=== PATIENT | female | born 1960 | race Caucasian/White ===

== ENCOUNTER 2023-10-04 14:43 | Emergency (ER) | payer MEDICARE, OTHER ==
[~2023-10-04] VITALS: Ht 165.1 cm; Wt 63.5 kg
[2023-10-04 14:55] VITALS: BP 148/100; TEMP 98; O2SAT 95
[2023-10-04] MEDS ORDERED: ACETAMINOPHEN ES 500 MG TABLET ONE (15:17)
[2023-10-04] MEDS: ACETAMINOPHEN ES 500 MG TABLET PO ONE (15:20)
== END 2023-10-04 20:00 ==
LOC: ER 14:48
DX: S00.81XA Abrasion of other part of head, initial encounter (principal); S09.90XA Unspecified injury of head, initial encounter; F03.90 Unspecified dementia, unspecified severity, without behavioral disturbance, psychotic disturbance, mood disturbance, and anxiety; I10 Essential (primary) hypertension; W01.0XXA Fall on same level from slipping, tripping and stumbling without subsequent striking against object, initial encounter; Y93.89 Activity, other specified; Y92.89 Other specified places as the place of occurrence of the external cause; Y99.8 Other external cause status
CPT/HCPCS: 70450-TC; 72125-TC

== ENCOUNTER 2024-01-04 17:47 | Inpatient (IN) | payer MEDICARE, OTHER ==
[~2024-01-04] VITALS: Ht 165.1 cm; Wt 54.0 kg
[2024-01-04 10:45] VITALS: BP 129/70; TEMP 98.8; O2SAT 96
[~2024-01-04 17:47] MED LIST: HYDR59LO13 TP; LORA-258 PO; TEMA7.5C PO
[2024-01-04 18:38] LABS: BASOPHILS % (AUTO) 0.3 % (0.0-2.0); HEMATOCRIT 48 % (33-45); LYMPHOCYTES % (AUTO) 8.7 % (20.0-44.0); MEAN CORPUSCULAR HEMOGLOBIN 32 PG (26.0-33.0); MEAN CORPUSCULAR HGB CONC 33 g/dl (31.0-36.0); MEAN CORPUSCULAR VOLUME 95 fL (82-100); MONOCYTES # (AUTO) 1.2 K/uL (0.1-1.30); PLATELET COUNT (AUTO) 293 K/uL (150-450); RED BLOOD CELL COUNT(AUTO) 5.04 MIL/uL (4.0-5.2); RED CELL DISTRIBUTION WIDTH 14.2 % (11.5-15.0); WHITE BLOOD COUNT (AUTO) 11.2 K/uL (4.3-11.0)
[2024-01-04 18:52] LABS: CALCIUM, SERUM 10.5 mg/dL (8.5-10.1); CARBON DIOXIDE 31 mmol/L (21-32); CHLORIDE 106 mmol/L (98-107); CREATININE 0.7 mg/dL (0.6-1.3); GLUCOSE 133 mg/dL (74-106); POTASSIUM 4.8 mmol/L (3.5-5.1); SODIUM SERUM 148 mmol/L (136-145); UREA NITROGEN, BLOOD 29 mg/dL (7-18)
[2024-01-04] MEDS: IV NS 0.9% 1,000 ML BAG IV ONE (18:58)
[2024-01-04 18:59] LABS: ALANINE AMINOTRANSFERASE 20 U/L (12-78); ALBUMIN 2.9 g/dL (3.4-5.0); ALKALINE PHOSPHATASE 94 U/L (46-116); ASPARTATE AMINOTRANSFERASE 17 U/L (15-37); BILIRUBIN,DIRECT 0.2 mg/dL (0.0-0.2); BILIRUBIN,TOTAL 0.6 mg/dL (0.2-1.0); LIPASE 36 U/L (16-77); TOTAL PROTEIN, SERUM 8.2 g/dL (6.4-8.2)
[2024-01-04] MEDS ORDERED: MULT-225 PO (19:28)
[2024-01-04] MEDS ORDERED: CRAN425C6 PO (19:28)
[2024-01-04] MEDS ORDERED: LEVO25TA9 PO (19:28)
[2024-01-04] MEDS ORDERED: RISP0.5T65 PO (19:28)
[2024-01-04] MEDS ORDERED: LACT-58 PO (19:28)
[2024-01-04] MEDS ORDERED: NA P133E RC (19:28)
[2024-01-04] MEDS ORDERED: BISA10SU11 RC (19:28)
[2024-01-04] MEDS ORDERED: DIVA125C2 PO (19:28)
[2024-01-04] MEDS ORDERED: MAGN400O6 PO (19:28)
[2024-01-04] MEDS ORDERED: FAMO20TA8 PO (19:28)
[2024-01-04] MEDS ORDERED: ATOR10TA PO (19:28)
[2024-01-04] MEDS ORDERED: DOCU100C36 PO (19:28)
[2024-01-04] MEDS ORDERED: GABA300C PO (19:28)
[2024-01-04] MEDS ORDERED: CHOL200059 PO (19:28)
[2024-01-04] MEDS ORDERED: RISP1TAB97 PO (19:28)
[2024-01-04] MEDS ORDERED: ACET325T53 PO (19:28)
[2024-01-04 20:02] LABS: APPEARANCE,URINE SLIGHTLY CLOUDY (CLEAR); BILIRUBIN,URINE NEGATIVE (NEGATIVE); BLOOD, URINE 3+ Ery/uL (NEGATIVE); COLOR,URINE YELLOW (YELLOW); KETONES,URINE 1+ mg/dL (NEGATIVE); LEUKOCYTE ESTERASE ,URINE 2+ (NEGATIVE); NITRITE, URINE POSITIVE (NEGATIVE); PH,URINE 7.5 (5.0-8.0); PROTEIN,URINE 1+ mg/dl (NEGATIVE); UGLUCOSE NEGATIVE (NEGATIVE)
[2024-01-04 20:24] LABS: RBC,URINE 21-50 /HPF (0-2)
[2024-01-04 20:25] LABS: ADD URINE CULTURE YES; BACTERIA,URINE Moderate /HPF (None Seen); CALCIUM OXALATE CRYSTALS,UR Few /HPF (None Seen); SQUAMOUS EPITHELIAL CELL,UR Moderate /HPF (None Seen)
[2024-01-04 20:30] VITALS: BP 129/70; TEMP 98.8; O2SAT 96
[2024-01-04] MEDS ORDERED: ZOLPIDEM TARTRATE 5 MG TABLET PO PRN (22:00)
[2024-01-04] MEDS ORDERED: ONDANSETRON HCL/PF 4 MG/2 ML VIAL IVP PRN (22:00)
[2024-01-04] MEDS ORDERED: MAGNESIUM HYDROXIDE 30 ML UDC PO PRN (22:00)
[2024-01-04] MEDS ORDERED: ACETAMINOPHEN 325 MG TABLET PO PRN (22:00)
[2024-01-04] MEDS ORDERED: MAG HYDROX/AL HYDROX/SIMETH 30 ML UDC PO PRN (22:00)
[2024-01-04] MEDS: ENOXAPARIN SODIUM 40 MG/0.4 ML DISP.SYRIN SQ SCH (22:44)
[2024-01-04] MEDS: IV 1/2NS 1000 ML 1,000 ML IV PRN (22:46)
[2024-01-04] MEDS ORDERED: CIPROFLOXACIN IV RTU 200 ML IV ONE (22:56)
[2024-01-04] MEDS: CIPROFLOXACIN IV RTU 400 MG in PREMIX 1 EA IV SCH (23:02)
[2024-01-05] MEDS ORDERED: MAGNESIUM HYDROXIDE 30 ML UDC PO PRN (00:30)
[2024-01-05] MEDS ORDERED: BISACODYL SUPP (10 MG) 10 MG/SUPP.RECT SUPP.RECT RC PRN (00:30)
[2024-01-05] MEDS ORDERED: NA PHOS,M-B/NA PHOS,DI-BA 1 EA ENEMA RC PRN (00:30)
[2024-01-05] MEDS ORDERED: TEMAZEPAM 7.5 MG CAPSULE PO PRN (00:30)
[2024-01-05] MEDS ORDERED: ACETAMINOPHEN 325 MG TABLET PO PRN (00:30)
[2024-01-05 06:44] LABS: BASOPHILS % (AUTO) 0.2 % (0.0-2.0); EOSINOPHILS % (AUTO) 0.3 % (0.0-6.0); HEMATOCRIT 43 % (33-45); HEMOGLOBIN 14.5 g/dL (11.5-14.8); LYMPHOCYTES # (AUTO) 0.9 K/uL (0.8-4.8); LYMPHOCYTES % (AUTO) 9.2 % (20.0-44.0); MEAN CORPUSCULAR HEMOGLOBIN 33 PG (26.0-33.0); MEAN CORPUSCULAR HGB CONC 34 g/dl (31.0-36.0); MEAN CORPUSCULAR VOLUME 96 fL (82-100); MONOCYTES # (AUTO) 1.4 K/uL (0.1-1.30); MONOCYTES % (AUTO) 13.8 % (2.0-12.0); NEUTROPHILS # (AUTO) 7.8 K/uL (1.8-8.9); NEUTROPHILS % (AUTO) 76.5 % (43.0-81.0); PLATELET COUNT (AUTO) 270 K/uL (150-450); RED BLOOD CELL COUNT(AUTO) 4.46 MIL/uL (4.0-5.2); RED CELL DISTRIBUTION WIDTH 14.1 % (11.5-15.0); WHITE BLOOD COUNT (AUTO) 10.1 K/uL (4.3-11.0)
[2024-01-05 07:24] LABS: CALCIUM, SERUM 9.1 mg/dL (8.5-10.1); CREATININE 0.3 mg/dL (0.6-1.3); MAGNESIUM 2.2 mg/dL (1.8-2.4); PHOSPHORUS 2.7 mg/dL (2.5-4.9); POTASSIUM 3.4 mmol/L (3.5-5.1)
[2024-01-05 07:30] VITALS: BP 136/77; TEMP 99.3; O2SAT 96
[2024-01-05 07:38] LABS: THYROID STIMULATING HORMONE 0.59 uIU/mL (0.358-3.74)
[2024-01-05 08:00] VITALS: BP_SYST 136; BP_SYST 150; BP_DIAS 77; BP_DIAS 92; TEMP 98.1; TEMP 99.3; O2SAT 96
[2024-01-05] MEDS ORDERED: Medication Not On Formulary EA (Cranberry Extract (Cranberry) 425 MG) PO SCH (09:00)
[2024-01-05] MEDS: MULTIVIT W/MINERALS 1 TAB TABLET PO SCH (09:40)
[2024-01-05] MEDS: GABAPENTIN 300 MG CAPSULE PO SCH (09:40)
[2024-01-05] MEDS: DIVALPROEX SODIUM 125 MG CAP.SPRINK PO SCH (09:40)
[2024-01-05] MEDS: CHOLECALCIFEROL 1,000 UNIT TABLET (VIT D3) PO SCH (09:40)
[2024-01-05] MEDS: LEVOTHYROXINE SODIUM 25 MCG TABLET PO SCH (09:40)
[2024-01-05] MEDS: DOCUSATE SODIUM 100 MG CAPSULE PO SCH (09:40)
[2024-01-05] MEDS: risperiDONE 0.25 MG TABLET PO SCH (09:40)
[2024-01-05] MEDS: PANTOPRAZOLE 40 MG TABLET.DR PO SCH (09:40)
[2024-01-05] MEDS ORDERED: POTASSIUM CHLORIDE 20 MEQ TAB.PRT.SR PO SCH (10:00)
[2024-01-05] MEDS: POTASSIUM CHLORIDE 20 MEQ POWDER PACKET PO SCH (10:26)
[2024-01-05] MEDS: ENSURE ENLIVE 237 ML LIQUID (VANILLA) PO SCH (10:40)
[2024-01-05] MEDS: TRIAMCINOLONE ACETONIDE 0.1% CR 15 GM TUBE TP SCH (11:21)
[2024-01-05 16:00] VITALS: BP 129/72; TEMP 99.1; O2SAT 96
[2024-01-05] MEDS: ATORVASTATIN 10 MG TABLET PO SCH (22:10)
[2024-01-05] MEDS: risperiDONE 1 MG TABLET PO SCH (22:10)
[2024-01-06 06:21] LABS: BASOPHILS % (AUTO) 0.2 % (0.0-2.0); EOSINOPHILS % (AUTO) 0.2 % (0.0-6.0); HEMATOCRIT 39 % (33-45); LYMPHOCYTES # (AUTO) 1.5 K/uL (0.8-4.8); MEAN CORPUSCULAR HEMOGLOBIN 32 PG (26.0-33.0); MEAN CORPUSCULAR HGB CONC 34 g/dl (31.0-36.0); MEAN CORPUSCULAR VOLUME 95 fL (82-100); MONOCYTES # (AUTO) 1.7 K/uL (0.1-1.30); MONOCYTES % (AUTO) 13.7 % (2.0-12.0); NEUTROPHILS # (AUTO) 9.4 K/uL (1.8-8.9); NEUTROPHILS % (AUTO) 73.9 % (43.0-81.0); PLATELET COUNT (AUTO) 254 K/uL (150-450); RED BLOOD CELL COUNT(AUTO) 4.07 MIL/uL (4.0-5.2); RED CELL DISTRIBUTION WIDTH 13.8 % (11.5-15.0); WHITE BLOOD COUNT (AUTO) 12.7 K/uL (4.3-11.0)
[2024-01-06 06:42] LABS: CALCIUM, SERUM 8.6 mg/dL (8.5-10.1); CREATININE 0.4 mg/dL (0.6-1.3); MAGNESIUM 1.8 mg/dL (1.8-2.4); PHOSPHORUS 2.6 mg/dL (2.5-4.9); POTASSIUM 3.2 mmol/L (3.5-5.1)
[2024-01-06] MEDS: POTASSIUM CHLORIDE 20 MEQ TAB.PRT.SR PO ONE (08:19)
[2024-01-06 08:40] VITALS: BP 137/84; TEMP 98.6; O2SAT 98
[2024-01-06] MEDS: PROSOURCE / PROSTAT (PYXIS) 30 ML UDC PO SCH (11:23)
[2024-01-06 16:08] VITALS: BP 114/62; TEMP 97.7; O2SAT 97
[2024-01-06 20:10] VITALS: BP 109/66; TEMP 98.2; O2SAT 97
[2024-01-07 06:47] LABS: BASOPHILS % (AUTO) 0.3 % (0.0-2.0); EOSINOPHILS # (AUTO) 0.1 K/uL (0.0-0.7); EOSINOPHILS % (AUTO) 0.8 % (0.0-6.0); HEMATOCRIT 42 % (33-45); HEMOGLOBIN 13.7 g/dL (11.5-14.8); LYMPHOCYTES # (AUTO) 1.7 K/uL (0.8-4.8); MEAN CORPUSCULAR HEMOGLOBIN 32 PG (26.0-33.0); MEAN CORPUSCULAR HGB CONC 33 g/dl (31.0-36.0); MEAN CORPUSCULAR VOLUME 97 fL (82-100); MONOCYTES # (AUTO) 1.5 K/uL (0.1-1.30); MONOCYTES % (AUTO) 14.4 % (2.0-12.0); NEUTROPHILS # (AUTO) 7.3 K/uL (1.8-8.9); NEUTROPHILS % (AUTO) 68.5 % (43.0-81.0); PLATELET COUNT (AUTO) 268 K/uL (150-450); RED BLOOD CELL COUNT(AUTO) 4.33 MIL/uL (4.0-5.2); RED CELL DISTRIBUTION WIDTH 13.8 % (11.5-15.0); WHITE BLOOD COUNT (AUTO) 10.6 K/uL (4.3-11.0)
[2024-01-07 07:30] VITALS: BP 127/87; TEMP 98.4; O2SAT 96
[2024-01-07 07:31] LABS: CALCIUM, SERUM 8.5 mg/dL (8.5-10.1); CREATININE 0.4 mg/dL (0.6-1.3); MAGNESIUM 2.2 mg/dL (1.8-2.4); PHOSPHORUS 3.2 mg/dL (2.5-4.9); POTASSIUM 3.7 mmol/L (3.5-5.1)
[2024-01-07] MEDS: CIPROFLOXACIN HCL 500 MG TABLET PO SCH (09:00)
[2024-01-07] MEDS: Z GUARD REMEDY 4 OZ OINT TP PRN (09:27)
[2024-01-07] MEDS ORDERED: CIPR-262 PO (10:11)
== END 2024-01-07 16:54 | DRG 872 ==
LOC: ER 17:52 → MED 20:12
PROVIDERS: ADMIT Student in an Organized Health Care Education/Training Program; ATTEND Nurse Practitioner Acute Care
DX: A41.9 Sepsis, unspecified organism (principal); E44.0 Moderate protein-calorie malnutrition; E87.0 Hyperosmolality and hypernatremia; N39.0 Urinary tract infection, site not specified; G93.49 Other encephalopathy; Z68.1 Body mass index [BMI] 19.9 or less, adult; E86.0 Dehydration; R62.7 Adult failure to thrive; E78.5 Hyperlipidemia, unspecified; G30.9 Alzheimer's disease, unspecified; I10 Essential (primary) hypertension; K21.9 Gastro-esophageal reflux disease without esophagitis; Z88.0 Allergy status to penicillin; F41.9 Anxiety disorder, unspecified; R26.89 Other abnormalities of gait and mobility; F02.80 Dementia in other diseases classified elsewhere, unspecified severity, without behavioral disturbance, psychotic disturbance, mood disturbance, and anxiety; M62.81 Muscle weakness (generalized); F22 Delusional disorders
CPT/HCPCS: 36415; 71045-TC; 80048-TC; 80076-TC; 81001; 82962-TC; 83690-TC; 83735-TC; 84100-TC; 84443-TC; 84484-TC; 85025-TC; 87081-TC; 87086-TC; 92526; 92611-TC; 97110-TC; 97530-TC; A4216; A4223; G0378; J0744; J1650; J3490; J7050

== ENCOUNTER 2024-02-18 17:29 | Inpatient (IN) | payer MEDICARE, OTHER ==
[~2024-02-18] VITALS: Ht 170.2 cm; Wt 54.9 kg
[~2024-02-18 17:29] MED LIST changes: +ACET325T53 PO; +ATOR10TA PO; +BISA10SU11 RC; +CHOL200059 PO; +CIPR-262 PO; +CRAN425C6 PO; +DIVA125C2 PO; +DOCU100C36 PO; +FAMO20TA8 PO; +GABA300C PO; +LACT-58 PO; +LEVO25TA9 PO; +MAGN400O6 PO; +MULT-225 PO; +NA P133E RC; +RISP0.5T65 PO; +RISP1TAB97 PO
[2024-02-18] MEDS ORDERED: AMIN30LI66 PO (18:18)
[2024-02-18 19:32] LABS: BASOPHILS % (AUTO) 0.3 % (0.0-2.0); EOSINOPHILS # (AUTO) 0.2 K/uL (0.0-0.7); HEMATOCRIT 43 % (33-45); HEMOGLOBIN 14.1 g/dL (11.5-14.8); LYMPHOCYTES # (AUTO) 2.7 K/uL (0.8-4.8); LYMPHOCYTES % (AUTO) 33.3 % (20.0-44.0); MEAN CORPUSCULAR HEMOGLOBIN 31 PG (26.0-33.0); MEAN CORPUSCULAR HGB CONC 33 g/dl (31.0-36.0); MEAN CORPUSCULAR VOLUME 94 fL (82-100); MONOCYTES # (AUTO) 0.8 K/uL (0.1-1.30); MONOCYTES % (AUTO) 10.4 % (2.0-12.0); NEUTROPHILS # (AUTO) 4.3 K/uL (1.8-8.9); PLATELET COUNT (AUTO) 338 K/uL (150-450); RED BLOOD CELL COUNT(AUTO) 4.52 MIL/uL (4.0-5.2); RED CELL DISTRIBUTION WIDTH 14.3 % (11.5-15.0); WHITE BLOOD COUNT (AUTO) 8.1 K/uL (4.3-11.0)
[2024-02-18 19:40] LABS: CALCIUM, SERUM 8.1 mg/dL (8.5-10.1); CREATININE 0.3 mg/dL (0.6-1.3); POTASSIUM 3.4 mmol/L (3.5-5.1)
[2024-02-18 19:44] LABS: INR 1.07 (0.91-1.10); PARTIAL THROMBOPLASTIN TIME 25.4 SEC (24.3-34.3)
[2024-02-18 19:46] LABS: ALBUMIN 2.6 g/dL (3.4-5.0); BILIRUBIN,DIRECT 0.3 mg/dL (0.0-0.2); BILIRUBIN,TOTAL 0.8 mg/dL (0.2-1.0); TOTAL PROTEIN, SERUM 5.7 g/dL (6.4-8.2)
[2024-02-18] MEDS ORDERED: ONDANSETRON HCL/PF 4 MG/2 ML VIAL IVP PRN (22:00)
[2024-02-18] MEDS ORDERED: ACETAMINOPHEN 325 MG TABLET PO PRN (22:00)
[2024-02-18] MEDS ORDERED: hydrALAZINE HCL IV 20 MG VIAL IV PRN (22:00)
[2024-02-18 22:03] LABS: APPEARANCE,URINE CLOUDY (CLEAR); BILIRUBIN,URINE 1+ (NEGATIVE); BLOOD, URINE 1+ Ery/uL (NEGATIVE); COLOR,URINE YELLOW (YELLOW); KETONES,URINE 2+ mg/dL (NEGATIVE); LEUKOCYTE ESTERASE ,URINE 1+ (NEGATIVE); NITRITE, URINE NEGATIVE (NEGATIVE); PROTEIN,URINE 1+ mg/dl (NEGATIVE); UGLUCOSE NEGATIVE (NEGATIVE)
[2024-02-18 22:21] LABS: ADD URINE CULTURE YES; BACTERIA,URINE 4+ /HPF (None Seen); SQUAMOUS EPITHELIAL CELL,UR 0-2 /HPF (None Seen)
[2024-02-18] MEDS ORDERED: LORAZEPAM 0.5 MG TABLET PO PRN (22:30)
[2024-02-19 01:00] VITALS: BP 132/71; TEMP 98.1; O2SAT 98
[2024-02-19] MEDS: IV NS 0.9% 1,000 ML IV SCH (01:13)
[2024-02-19] MEDS: DIVALPROEX SODIUM 125 MG CAP.SPRINK PO SCH (01:41)
[2024-02-19 07:54] LABS: BASOPHILS % (AUTO) 0.4 % (0.0-2.0); EOSINOPHILS # (AUTO) 0.2 K/uL (0.0-0.7); HEMATOCRIT 45 % (33-45); HEMOGLOBIN 14.6 g/dL (11.5-14.8); LYMPHOCYTES # (AUTO) 2.7 K/uL (0.8-4.8); MEAN CORPUSCULAR HEMOGLOBIN 32 PG (26.0-33.0); MEAN CORPUSCULAR HGB CONC 33 g/dl (31.0-36.0); MEAN CORPUSCULAR VOLUME 97 fL (82-100); MONOCYTES % (AUTO) 9.8 % (2.0-12.0); NEUTROPHILS # (AUTO) 5.9 K/uL (1.8-8.9); NEUTROPHILS % (AUTO) 59.8 % (43.0-81.0); PLATELET COUNT (AUTO) 354 K/uL (150-450); RED CELL DISTRIBUTION WIDTH 14.9 % (11.5-15.0); WHITE BLOOD COUNT (AUTO) 9.8 K/uL (4.3-11.0)
[2024-02-19 08:00] VITALS: BP 153/88; TEMP 99.2; O2SAT 98
[2024-02-19 08:15] LABS: ALBUMIN 2.2 g/dL (3.4-5.0); BILIRUBIN,TOTAL 0.7 mg/dL (0.2-1.0); CALCIUM, SERUM 8.2 mg/dL (8.5-10.1); CREATININE 0.3 mg/dL (0.6-1.3); MAGNESIUM 2.1 mg/dL (1.8-2.4); PHOSPHORUS 2.2 mg/dL (2.5-4.9); POTASSIUM 3.8 mmol/L (3.5-5.1)
[2024-02-19] MEDS: GABAPENTIN 300 MG CAPSULE PO SCH (09:58)
[2024-02-19] MEDS: POLYETHYLENE GLYCOL 3350 17 GM POWD.PACK PO SCH (09:58)
[2024-02-19] MEDS: LEVOTHYROXINE SODIUM 25 MCG TABLET PO SCH (09:58)
[2024-02-19] MEDS: DOCUSATE SODIUM LIQ 100 MG/10 ML UDC PO SCH (09:58)
[2024-02-19] MEDS: FAMOTIDINE (20 MG) 20 MG TABLET PO SCH (09:59)
[2024-02-19] MEDS: HEPARIN SODIUM, PORCINE 5000 UNITS/1 ML VIAL SQ SCH (09:59)
[2024-02-19] MEDS: CIPROFLOXACIN IV RTU 400 MG in PREMIX 1 EA IV SCH (11:34)
[2024-02-19 16:00] VITALS: BP 148/86; TEMP 98.9; O2SAT 98
[2024-02-19] MEDS: K PHOS NEUTRAL 250 MG TABLET PO ONE (16:58)
[2024-02-19 20:00] VITALS: BP 122/82; TEMP 97.7; O2SAT 97
[2024-02-19] MEDS: risperiDONE 0.25 MG TABLET PO SCH (21:29)
[2024-02-19] MEDS: ATORVASTATIN 10 MG TABLET PO SCH (21:29)
[2024-02-20 06:44] LABS: BASOPHILS % (AUTO) 0.5 % (0.0-2.0); EOSINOPHILS # (AUTO) 0.3 K/uL (0.0-0.7); EOSINOPHILS % (AUTO) 3.4 % (0.0-6.0); HEMATOCRIT 43 % (33-45); HEMOGLOBIN 14.1 g/dL (11.5-14.8); LYMPHOCYTES # (AUTO) 2.9 K/uL (0.8-4.8); LYMPHOCYTES % (AUTO) 36.4 % (20.0-44.0); MEAN CORPUSCULAR HEMOGLOBIN 31 PG (26.0-33.0); MEAN CORPUSCULAR HGB CONC 33 g/dl (31.0-36.0); MEAN CORPUSCULAR VOLUME 96 fL (82-100); MONOCYTES # (AUTO) 0.8 K/uL (0.1-1.30); MONOCYTES % (AUTO) 10.3 % (2.0-12.0); NEUTROPHILS # (AUTO) 3.9 K/uL (1.8-8.9); NEUTROPHILS % (AUTO) 49.4 % (43.0-81.0); PLATELET COUNT (AUTO) 325 K/uL (150-450); RED CELL DISTRIBUTION WIDTH 14.9 % (11.5-15.0); WHITE BLOOD COUNT (AUTO) 7.8 K/uL (4.3-11.0)
[2024-02-20 07:00] VITALS: BP 130/93; TEMP 98.2; O2SAT 95
[2024-02-20 07:26] LABS: CALCIUM, SERUM 8.1 mg/dL (8.5-10.1); CREATININE 0.4 mg/dL (0.6-1.3); MAGNESIUM 1.9 mg/dL (1.8-2.4); PHOSPHORUS 2.7 mg/dL (2.5-4.9)
[2024-02-20] MEDS: POTASSIUM CHLORIDE 20 MEQ TAB.PRT.SR PO ONE (10:10)
[2024-02-20 16:00] VITALS: BP 134/60; TEMP 97.9; O2SAT 97
[2024-02-20 20:00] VITALS: BP 130/80; TEMP 97.9; O2SAT 96
[2024-02-21] MEDS: IV NS 0.9% 1,000 ML IV PRN (00:35)
[2024-02-21 07:30] LABS: BASOPHILS % (AUTO) 0.4 % (0.0-2.0); EOSINOPHILS # (AUTO) 0.4 K/uL (0.0-0.7); EOSINOPHILS % (AUTO) 3.1 % (0.0-6.0); HEMATOCRIT 41 % (33-45); HEMOGLOBIN 13.7 g/dL (11.5-14.8); LYMPHOCYTES # (AUTO) 3.1 K/uL (0.8-4.8); LYMPHOCYTES % (AUTO) 27.5 % (20.0-44.0); MEAN CORPUSCULAR HEMOGLOBIN 32 PG (26.0-33.0); MEAN CORPUSCULAR HGB CONC 33 g/dl (31.0-36.0); MEAN CORPUSCULAR VOLUME 95 fL (82-100); MONOCYTES # (AUTO) 0.8 K/uL (0.1-1.30); MONOCYTES % (AUTO) 7.6 % (2.0-12.0); NEUTROPHILS # (AUTO) 6.9 K/uL (1.8-8.9); NEUTROPHILS % (AUTO) 61.4 % (43.0-81.0); PLATELET COUNT (AUTO) 325 K/uL (150-450); RED BLOOD CELL COUNT(AUTO) 4.33 MIL/uL (4.0-5.2); RED CELL DISTRIBUTION WIDTH 14.8 % (11.5-15.0); WHITE BLOOD COUNT (AUTO) 11.3 K/uL (4.3-11.0)
[2024-02-21 07:35] LABS: CALCIUM, SERUM 8.2 mg/dL (8.5-10.1); CREATININE 0.4 mg/dL (0.6-1.3); MAGNESIUM 1.8 mg/dL (1.8-2.4); PHOSPHORUS 2.6 mg/dL (2.5-4.9); POTASSIUM 2.9 mmol/L (3.5-5.1)
[2024-02-21 08:00] VITALS: BP 130/91; TEMP 99.1; O2SAT 100
[2024-02-21 08:20] VITALS: BP 115/96; TEMP 98.6; O2SAT 96
[2024-02-21] MEDS: POTASSIUM CHLORIDE 20 MEQ TAB.PRT.SR PO ONE (13:48)
[2024-02-21] MEDS: ENSURE ENLIVE 237 ML LIQUID (VANILLA) PO SCH (13:48)
[2024-02-21] MEDS: PERMETHRIN 59 ML BOTTLE TP ONE (14:27)
[2024-02-21 15:13] LABS: CALCIUM, SERUM 8.1 mg/dL (8.5-10.1); CREATININE 0.4 mg/dL (0.6-1.3); POTASSIUM 2.8 mmol/L (3.5-5.1)
[2024-02-21 16:00] VITALS: BP 117/100; TEMP 98; O2SAT 98
[2024-02-21 20:00] VITALS: BP 115/96; TEMP 98.6; O2SAT 96
[2024-02-22 07:03] LABS: BASOPHILS # (AUTO) 0.1 K/uL (0.0-0.2); BASOPHILS % (AUTO) 0.4 % (0.0-2.0); EOSINOPHILS # (AUTO) 0.4 K/uL (0.0-0.7); EOSINOPHILS % (AUTO) 2.7 % (0.0-6.0); HEMATOCRIT 43 % (33-45); HEMOGLOBIN 14.2 g/dL (11.5-14.8); MEAN CORPUSCULAR HEMOGLOBIN 32 PG (26.0-33.0); MEAN CORPUSCULAR HGB CONC 33 g/dl (31.0-36.0); MEAN CORPUSCULAR VOLUME 96 fL (82-100); MONOCYTES % (AUTO) 7.4 % (2.0-12.0); NEUTROPHILS # (AUTO) 10.1 K/uL (1.8-8.9); NEUTROPHILS % (AUTO) 74.5 % (43.0-81.0); PLATELET COUNT (AUTO) 338 K/uL (150-450); RED BLOOD CELL COUNT(AUTO) 4.51 MIL/uL (4.0-5.2); RED CELL DISTRIBUTION WIDTH 14.7 % (11.5-15.0); WHITE BLOOD COUNT (AUTO) 13.6 K/uL (4.3-11.0)
[2024-02-22 07:30] VITALS: BP 112/96; TEMP 98.1; O2SAT 91
[2024-02-22 07:59] LABS: CALCIUM, SERUM 8.3 mg/dL (8.5-10.1); CREATININE 0.2 mg/dL (0.6-1.3); MAGNESIUM 1.5 mg/dL (1.8-2.4); PHOSPHORUS 2.4 mg/dL (2.5-4.9); POTASSIUM 3.1 mmol/L (3.5-5.1)
[2024-02-22 08:25] VITALS: BP 118/71; TEMP 98.7; O2SAT 96
[2024-02-22] MEDS ORDERED: POTASSIUM CHLORIDE 10 MEQ/50 ML PREMIXED IVPB FOR PERIPHERAL LINE IV ONE (10:00)
[2024-02-22] MEDS: MAGNESIUM OXIDE 400 MG TABLET PO ONE (10:04)
[2024-02-22] MEDS: POTASSIUM CL. PREMIX PERIPHER. 50 ML IV SCH (10:53)
[2024-02-22] MEDS: Magnesium 1GM/D5W 100ML PREMIX 100 ML IV SCH (10:54)
[2024-02-22 13:13] LABS: THYROID STIMULATING HORMONE 0.74 uIU/mL (0.358-3.74)
[2024-02-22] MEDS: Sodium Phosphate 15 MMOL in IV NS 0.9% 245 ML IV SCH (15:15)
[2024-02-22 16:00] VITALS: BP 111/80; TEMP 97; O2SAT 97
[2024-02-22 16:55] LABS: CALCIUM, SERUM 8.5 mg/dL (8.5-10.1); CREATININE 0.5 mg/dL (0.6-1.3); POTASSIUM 4.5 mmol/L (3.5-5.1)
[2024-02-22 20:00] VITALS: BP 118/71; TEMP 98.7; O2SAT 96
[2024-02-22] MEDS: MORPHINE SULFATE INJ 2 MG/ML DISP.SYRIN IV PRN (21:49)
[2024-02-23 07:30] LABS: BASOPHILS % (AUTO) 0.2 % (0.0-2.0); EOSINOPHILS # (AUTO) 0.2 K/uL (0.0-0.7); EOSINOPHILS % (AUTO) 1.3 % (0.0-6.0); HEMATOCRIT 44 % (33-45); HEMOGLOBIN 14.7 g/dL (11.5-14.8); LYMPHOCYTES # (AUTO) 1.8 K/uL (0.8-4.8); LYMPHOCYTES % (AUTO) 14.4 % (20.0-44.0); MEAN CORPUSCULAR HEMOGLOBIN 32 PG (26.0-33.0); MEAN CORPUSCULAR HGB CONC 33 g/dl (31.0-36.0); MEAN CORPUSCULAR VOLUME 96 fL (82-100); MONOCYTES # (AUTO) 0.9 K/uL (0.1-1.30); MONOCYTES % (AUTO) 7.5 % (2.0-12.0); NEUTROPHILS # (AUTO) 9.5 K/uL (1.8-8.9); NEUTROPHILS % (AUTO) 76.6 % (43.0-81.0); PLATELET COUNT (AUTO) 354 K/uL (150-450); RED BLOOD CELL COUNT(AUTO) 4.57 MIL/uL (4.0-5.2); WHITE BLOOD COUNT (AUTO) 12.4 K/uL (4.3-11.0)
[2024-02-23 08:00] VITALS: BP 118/79; TEMP 98.2; O2SAT 96
[2024-02-23 08:11] LABS: CALCIUM, SERUM 8.4 mg/dL (8.5-10.1); CREATININE 0.4 mg/dL (0.6-1.3); MAGNESIUM 2.2 mg/dL (1.8-2.4); POTASSIUM 3.9 mmol/L (3.5-5.1)
[2024-02-23] MEDS: PERMETHRIN 5% CRM 60 GM TUBE TP ONE (11:00)
[2024-02-23 16:00] VITALS: BP 110/89; TEMP 98.3; O2SAT 96
[2024-02-23] MEDS: JEVITY 1.2 CAL 1,000 ML BOTTLE GT PRN (16:25)
[2024-02-23] MEDS ORDERED: LORAZEPAM 0.5 MG TABLET GT PRN (16:56)
[2024-02-23] MEDS ORDERED: ACETAMINOPHEN 650 MG/20.3 ML UDC GT PRN (17:00)
[2024-02-23] MEDS: GABAPENTIN 300 MG CAPSULE GT SCH (18:24)
[2024-02-23] MEDS: DOCUSATE SODIUM LIQ 100 MG/10 ML UDC GT SCH (18:24)
[2024-02-23] MEDS: DIVALPROEX SODIUM 125 MG CAP.SPRINK GT SCH (18:24)
[2024-02-23 20:00] VITALS: BP 107/92; TEMP 99.1; O2SAT 98
[2024-02-23] MEDS: ATORVASTATIN 10 MG TABLET GT SCH (21:23)
[2024-02-24 07:03] LABS: CALCIUM, SERUM 8.2 mg/dL (8.5-10.1); CREATININE 0.4 mg/dL (0.6-1.3); POTASSIUM 3.5 mmol/L (3.5-5.1)
[2024-02-24 08:00] VITALS: BP 140/69; TEMP 98.1; O2SAT 97
[2024-02-24] MEDS: LEVOTHYROXINE SODIUM 25 MCG TABLET GT SCH (08:14)
[2024-02-24] MEDS: POLYETHYLENE GLYCOL 3350 17 GM POWD.PACK GT SCH (08:14)
[2024-02-24] MEDS: FAMOTIDINE (20 MG) 20 MG TABLET GT SCH (08:14)
[2024-02-24 10:42] VITALS: BP 142/107; TEMP 97.5; O2SAT 100
[2024-02-24 15:39] VITALS: BP 128/68; TEMP 98.2; O2SAT 100
== END 2024-02-24 15:40 | DRG 640 ==
LOC: ER 17:56 → MED 23:23
PROVIDERS: ADMIT Internal Medicine; ATTEND Nurse Practitioner Acute Care
PROC: 0DH63UZ Insertion of Feeding Device into Stomach, Percutaneous Approach (ICD-10-PCS; principal; 2024-02-22)
DX: R62.7 Adult failure to thrive (principal); G93.41 Metabolic encephalopathy; N39.0 Urinary tract infection, site not specified; F02.83 Dementia in other diseases classified elsewhere, unspecified severity, with mood disturbance; E44.0 Moderate protein-calorie malnutrition; Z68.1 Body mass index [BMI] 19.9 or less, adult; E87.6 Hypokalemia; G62.9 Polyneuropathy, unspecified; E88.09 Other disorders of plasma-protein metabolism, not elsewhere classified; E03.9 Hypothyroidism, unspecified; E78.5 Hyperlipidemia, unspecified; I10 Essential (primary) hypertension; K21.9 Gastro-esophageal reflux disease without esophagitis; K29.70 Gastritis, unspecified, without bleeding; L29.9 Pruritus, unspecified; R13.10 Dysphagia, unspecified; R53.1 Weakness; F39 Unspecified mood [affective] disorder; G30.9 Alzheimer's disease, unspecified; R21 Rash and other nonspecific skin eruption; B96.89 Other specified bacterial agents as the cause of diseases classified elsewhere
CPT/HCPCS: 36415; 43246; 70450-TC; 71045-TC; 80048-TC; 80053-TC; 80061-TC; 80076-TC; 81001; 82607-TC; 83735-TC; 83921; 84100-TC; 84443-TC; 85025-TC; 85730-TC; 86850-TC; 87086-TC; 92526; 92611-TC; A4216; A4223; A9563; G0378; J0744; J1644; J2270; J2704; J3475; J3480; J7030; J7050; J7060